=== PATIENT | male | born 1950 | race Hispanic/Latino ===

== ENCOUNTER 2016-11-25 07:53 | Inpatient (IN) | payer BC, MEDICARE ==
[2016-11-25 10:47] LABS: Hematocrit 42.6 % (35.5-45.6); Hemoglobin 14.2 gm/dl (11.8-15.2); Mean Corpuscular HGB Conc 33 % (32-34); Mean Corpuscular Hemoglobin 33 pg (28-32); Mean Corpuscular Volume 98 fl (84-94); Platelet Count 257 K/mm3 (140-440); Red Blood Count 4.37 M/mm3 (3.65-5.03); Red Cell Distribution Width 13.4 % (13.2-15.2)
[2016-11-25 10:56] LABS: INR 1.12 (0.87-1.13)
[2016-11-25 10:57] LABS: Partial Thromboplastin Time 26.6 Sec. (24.2-36.6)
[2016-11-25 11:02] LABS: Alanine Aminotransferase 11 units/L (7-56); Albumin/Globulin Ratio 1.4 %; Alkaline Phosphatase 87 units/L (35-129); Anion Gap 17 mmol/L; BUN/Creatinine Ratio 14.54; Bilirubin,Total 0.6 mg/dL (0.1-1.2); Blood Urea Nitrogen 16 mg/dL (9-20); Carbon Dioxide 24 mmol/L (22-30); Chloride 102.7 mmol/L (98-107); Glucose 108 mg/dL (75-100); Potassium 4.3 mmol/L (3.6-5.0); Sodium 139 mmol/L (137-145); Total Protein 6.8 g/dL (6.3-8.2)
--- NOTE | 2016-11-25 11:04 | Emergency Department Report ---
ED Extremity Problem HPI - General Chief complaint: Extremity Injury, Lower Stated complaint: LEGS/ARM SWELLING Time Seen by Provider: 11/25/16 10:09 Source: patient Mode of arrival: Ambulatory Limitations: No Limitations - History of Present Illness Initial comments: PT c/o R foot/ leg swelling x 1 week. PT states the pain started in his calf and then moved to foot. PT c/o L foot swelling and pain since Friday. Pt states his L hand was swollen yesterday. PT denies injury or trauma. PT states 2 weeks ago he drove to [place] for work and he works as a oxyacetylene welder PT states he was seen at [facility] and given RX medication but no improvement after starting Naprosyn Complaint: extremity pain, extremity swelling Onset/Timin -: Gradual, week(s) Location: left, right, upper extremity, lower extremity Consistency: constant (swelling - pain waxes and wans ) Improves with: nothing Associated Symptoms: denies: chest pain, shortness of breath, fever - Related Data Home Medications Medication Instructions Recorded Confirmed Last Taken Benazepril HCl 40 mg PO QDAY 11/25/16 11/25/16 11/25/16 05:00 Naproxen [Naprosyn] 500 mg PO BID 11/25/16 11/25/16 11/25/16 05:00 amLODIPine [Norvasc] 10 mg PO DAILY 11/25/16 11/25/16 11/25/16 05:00 Allergies Allergy/AdvReac Type Severity Reaction Status Date / Time No Known Allergies Allergy Unverified 11/25/16 07:59 ED Review of Systems ROS: Stated complaint: LEGS/ARM SWELLING Other details as noted in HPI Comment: All other systems reviewed and negative Constitutional: denies: chills, fever Respiratory: denies: shortness of breath Cardiovascular: denies: chest pain Gastrointestinal: denies: nausea, vomiting Musculoskeletal: as per HPI. denies: back pain Skin: denies: change in color ED Past Medical Hx - Past Medical History Hx Hypertension: Yes - Surgical History Past Surgical History?: No - Family History Family history: other (denies fhx of DVT) - Social History Smoking Status: Never Smoker Substance Use Type: None - Medications Home Medications: Home Medications Medication Instructions Recorded Confirmed Last Taken Type Benazepril HCl 40 mg PO QDAY 11/25/16 11/25/16 11/25/16 05:00 History Naproxen [Naprosyn] 500 mg PO BID 11/25/16 11/25/16 11/25/16 05:00 History amLODIPine [Norvasc] 10 mg PO DAILY 11/25/16 11/25/16 11/25/16 05:00 History ED Physical Exam - General Limitations: No Limitations General appearance: alert, in no apparent distress - Head Head exam: Present: atraumatic, normocephalic - Eye Eye exam: Present: normal appearance. Absent: conjunctival injection - ENT ENT exam: Present: normal exam - Neck Neck exam: Present: normal inspection, full ROM - Respiratory Respiratory exam: Present: normal lung sounds bilaterally. Absent: respiratory distress, wheezes, rhonchi - Cardiovascular Cardiovascular Exam: Present: regular rate, normal rhythm, normal heart sounds - GI/Abdominal GI/Abdominal exam: Present: soft. Absent: tenderness - Extremities Exam Extremities exam: Present: pedal edema. Absent: calf tenderness - Expanded Lower Extremity Exam Left Knee exam: Present: normal inspection, full ROM Lower Leg exam: Present: swelling. Absent: tenderness Ankle exam: Present: swelling, erythema (to medial ankle ). Absent: tenderness , abrasion Foot/Toe exam: Present: swelling. Absent: tenderness Right Lower Leg exam: Present: swelling. Absent: tenderness Ankle exam: Present: swelling. Absent: tenderness Foot/Toe exam: Present: swelling (+ pitting edema ), erythema (to R lateral foot 8 cm x 6 cm ). Absent: tenderness, tenderness at base of 5th metatarsal - Back Exam Back exam: Present: normal inspection, full ROM. Absent: tenderness, CVA tenderness (R), CVA tenderness (L), muscle spasm, paraspinal tenderness, vertebral tenderness - Neurological Exam Neurological exam: Present: alert, oriented X3 - Psychiatric Psychiatric exam: Present: normal affect, normal mood - Skin Skin exam: Present: warm, dry, erythema (to R lateral foot and L medial ankle ) ED Course Vital Signs 11/25/16 11/25/16 08:04 17:54 Temperature 97.6 F Pulse Rate 94 H Respiratory 16 22 Rate Blood Pressure 115/73 O2 Sat by Pulse 97 Oximetry - Reevaluation(s) Reevaluation #1: 11/25/16 12:38 PT aware of available lab work. Reevaluation #2: 11/25/16 12:49 Dr Cota aware of pt. Reevaluation #3: 11/25/16 15:49 repeat lactic acid improved - Consultations Consultation #1: 11/25/16 13:32 Dr Hilton to call back Consultation #2: 11/25/16 13:57 Dr Hilton to evaluate - Pulse Oximetry Interpretation Digit-Finger Initial Pulse Oximetry Readin Actions Taken: none ED Medical Decision Making - Lab Data Result diagrams: 11/25/16 10:26 11/25/16 10:26 - EKG Data -: EKG Interpreted by Co EKG shows normal: sinus rhythm Rate: normal - Radiology Data Radiology results: report reviewed BLE - no dvt - Differential Diagnosis dvt, cellulitis, renal insuf, chf Critical care attestation.: If time is entered above; I have spent that time in minutes in the direct care of this critically ill patient, excluding procedure time. ED Disposition Clinical Impression: Lower extremity edema Qualifiers: Laterality: bilateral Qualified Code(s): R60.0 - Localized edema Cellulitis Qualifiers: Site of cellulitis: extremity Site of cellulitis of extremity: lower extremity Laterality: right Qualified Code(s): L03.115 - Cellulitis of right lower limb Leukocytosis, unspecified Qualifiers: Leukocytosis type: unspecified Qualified Code(s): D72.829 - Elevated white blood cell count, unspecified Disposition: OP ADMITTED IP TO THIS HOSP Is pt being admited?: Yes Does the pt Need Aspirin: No Condition: Stable Referrals: ALAN GAYLE [Other] - 3-5 Days
[2016-11-25 11:30] LABS: Basophils % (Manual) 0 % (0.0-1.8); Blastocytes % (Manual) 0 %; Eosinophils % (Manual) 0 % (0.0-4.3)
[2016-11-25 11:31] LABS: Diff Status Complete; RBC Morphology Normal
[2016-11-25] MEDS ORDERED: VANCOMYCIN/NS 1 GM/250 ML 1 GM/250 ML BAG IV ONE (12:32)
[2016-11-25] MEDS ORDERED: NACL 0.9% 1000 ML IV ONE (12:32)
[2016-11-25] MEDS ORDERED: ROCEPHIN/NS 1 GM/50 ML 1 GM/50 ML BAG IV ONE (12:32)
--- NOTE | 2016-11-25 13:34 | XRay Report ---
Chest 2 views: History: Fever/sepsis. Findings: Normal cardiomediastinal silhouette. Trachea is midline. No consolidation, pneumothorax or pleural effusion. Impression: No acute cardiopulmonary findings.
--- NOTE | 2016-11-25 14:24 | Admit Criteria Form ---
Admission Criteria Documentation: CELLULITIS Clinical Indications for Admission to Inpatient Care (Place 'X' for any and all applicable criteria): Admission is indicated for ANY ONE of the following(1)(2)(3)(4)(5): [ ]I. Limb-threatening infection [ ]II. High-risk comorbid condition as indicated by ANY ONE of the following: [ ]a) Uncontrolled diabetes (eg, HbA1c greater than 10% (0.1)) [ ]b) Cirrhosis [ ]c) Neutropenia [ ]d) Asplenia [ ]e) Immunosuppression [ ]f) Symptomatic heart failure [ ]III. Failure of outpatient therapy as indicated by ALL of the following: [ ]a) Progression or no improvement after adequate trial (minimum of 48 hours, with longer period for stable lower extremity infection) [ ]b) Adequate antibiotic regimen as indicated by use of ANY ONE of the following: [ ]i) First-generation cephalosporin (e.g., cephalexin) [ ]ii) Antistaphylococcal penicillin (e.g., dicloxacillin) [ ]iii) Penicillin-allergic patient regimen (clindamycin, extended-spectrum fluoroquinolone, or doxycycline) [ ]iv) Resistant organism (eg, methicillin-resistant Staphylococcus aureus) regimen (6) [ ]c) Outpatient intravenous therapy regimen is not appropriate due to ANY ONE of the following. (7)(8)(9)(10): [ ]i) It was tried and was not successful (eg, progression of infection). [ ]ii) It is not available or cannot be arranged in a clinically appropriate time frame (e.g., the next day). [ ]iii) Clinical presentation (eg, acuity of infection, rapidity of progression, confirmed or suspected bacteremia) is judged to require ALL of the following: [ ]1) Immediate initiation of intravenous therapy ( eg, cannot wait for next day) [ ]2) Intensity of patient monitoring and observation (eg, vital sign measurement, checks for infection progression) that cannot be provided at other than inpatient level of care [ ]IV. Mental status changes [ ]V. Bacteremia [ ]. Hemodynamic instability [ ]VII. Suspected necrotizing soft tissue infection (e.g., gas in tissue)(11)( 12) [ ]VIII. Orbital infection (13)(14) [ ]IX. Associated surgical procedure (e.g., abscess drainage, debridement) not amenable to outpatient, emergency department, or observation care [ ]X. Cutaneous gangrene [ ]XI. High fever (temperature greater than 39.5 degrees C (103.1 degrees F) (oral)) not responsive to outpatient, emergency department, or observation care therapy [ X]XIII. Inpatient admission required rather than observation care (Also use Cellulitis: Observation Care as appropriate) because of ANY ONE of the following : [ ]a) Periorbital or perineal infection that is severe or worsening [ ]b) Severe pain requiring acute inpatient management [ ]c) IV fluid to replace significant ongoing (e.g., for over 24 hours) losses (greater than 3L/m2 per day) [ ]d) Compartment syndrome monitoring (17) [ ]e) Strict or protective (eg, laminar flow) isolation [ ]f) Urgent debridement or skin grafting [ ]g) Bone or joint debridement [ ]h) Immediate inpatient surgery [X ]i) Other condition, treatment or monitoring requiring inpatient admission Extended stay beyond goal length of stay may be needed for (1)(18): [ ]a) Necrotizing soft tissue infection or fasciitis [ ]b) Gram-negative infection [ ]c) Methicillin-resistant Staphylococcal aureus (MRSA) infection [ ]d) Peripheral venous insufficiency with cellulitis [ ]e) Extensive edema [ ]f) Sepsis or continued Hemodynamic instability [ ]g) Continued high fever or mental status change [ ]h) Bacteremia [ ]i) Active serious comorbid conditions ( eg, heart failure, renal insufficiency) The original [facility] content created by [employer] has been revised. The portions of the content which have been revised are identified through the use of italic text or in bold, and [facility] has neither reviewed nor approved the modified material. All other unmodified content is copyright [facility] [employer] Please see references footnoted in the original [facility] edition 2016 Admission Criteria Met: Yes
[2016-11-25] MEDS ORDERED: ZOFRAN IV ONE (17:37)
[2016-11-25] MEDS ORDERED: MORPHINE IV ONE (17:37)
--- NOTE | 2016-11-25 19:13 | Event Note ---
Date: 11/25/16 See H/p in reports Cellulitis Acute Gout
[2016-11-25] MEDS ORDERED: DULCOLAX PR PRN (19:14)
[2016-11-25] MEDS ORDERED: DILAUDID IV PRN (19:14)
[2016-11-25] MEDS ORDERED: TYLENOL PO PRN (19:14)
[2016-11-25] MEDS ORDERED: MILK OF MAGNESIA PO PRN (19:14)
[2016-11-25] MEDS ORDERED: AMBIEN PO PRN (19:14)
[2016-11-25] MEDS ORDERED: ZOFRAN IV PRN (19:14)
[2016-11-25] MEDS ORDERED: PERCOCET 5/325 PO PRN (19:14)
[2016-11-25] MEDS ORDERED: NON-FORMULARY (Benazepril Hcl [Benazepril Hcl] 40 MG) PO SCH (19:15)
[2016-11-25] MEDS ORDERED: VANCOMYCIN/NS 1 GM/250 ML 1 GM/250 ML BAG IV SCH (20:00)
[2016-11-25] MEDS ORDERED: D5/0.45NS 1,000 ML IV SCH (20:00)
--- NOTE | 2016-11-25 20:20 | History and Physical Report ---
CHIEF COMPLAINT: 1. Right foot swelling and redness for one week. 2. Left foot swelling and pain since 3 days and left hand swelling for about 2 days. HISTORY OF PRESENT ILLNESS: A 66-year-old male with history of hypertension and arthritis, who comes in for right foot swelling and redness of one-week duration. Pain is about 8 on a scale of 1-10. Redness around the ankle, spreading up to lower half of the calf, and also the mid dorsum of the foot. It was painful to walk. After 3-4 days, he developed left foot swelling and pain for three days. Now, he has swollen left hand, which is about 5/10 pain. Also, some redness and warmth present in both the left ankle and the right ankle. The predominant joint, which is effected, is the right ankle. No fever, no chills. No history of any rheumatoid arthritis. PAST MEDICAL HISTORY: Significant for, 1. Hypertension. 2. Mild arthritis. CURRENT MEDICATIONS: Benazepril 40 mg once a day, naproxen 500 mg twice a day, amlodipine 10 mg once a day. PAST SURGICAL HISTORY: None. FAMILY HISTORY: DVT. SOCIAL HISTORY: Does not smoke. No alcohol, no recreational drugs. REVIEW OF SYSTEMS: CONSTITUTION: No fever. No weight loss, no weight gain. HEENT: No sore throat, no postnasal drip. NECK: No neck stiffness. No neck pain. CARDIOVASCULAR AND RESPIRATORY SYSTEM: No shortness of breath, no chest pain, no palpitations. GASTROINTESTINAL: No nausea, no vomiting, no diarrhea. GENITOURINARY SYSTEM: No dysuria and no flank pain. MUSCULOSKELETAL SYSTEM: As described in the history of present illness, right foot swelling and redness, left ankle swelling and redness, and left hand swelling. HEMATOLOGIC AND LYMPHATIC SYSTEM: No easy bruising. No lymphedema. SKIN: No rashes. PSYCHIATRIC: No anxiety or depression. A 14-point review of systems done, essentially negative. PHYSICAL EXAMINATION: GENERAL: On examination, elderly male, cooperative during examination. VITAL SIGNS: Temperature is 97.6, pulse is 94, respiratory rate is 16, blood pressure is 115/73. HEENT: Unremarkable. Pupils equal and reactive. NECK: Supple, no lymphadenopathy, no thyromegaly. LUNGS: Clear to auscultation and percussion. Good air entry. CARDIOVASCULAR: S1, S2 heard. No gallop, no murmur, no rub. Apical impulse in the left fifth intercostal space and midclavicular line. ABDOMEN: Soft and benign. No hepatosplenomegaly. No guarding, no rigidity. Hernial orifices are normal. EXTREMITIES: Good pedal pulses. Left ankle swollen and tenderness present. There redness extends from the lower 3 inches of the leg through the ankle to the mid dorsum of the left foot. Also, the right ankle is red and swollen. Warm to touch. Left wrist is warm to touch. Not very much swollen, but slightly swollen. CENTRAL NERVOUS SYSTEM: Alert and oriented x4, nonfocal exam. LABORATORY DATA: Significant for white count of 21,000, H and H is 14.2 and 33.0, platelet count is 257,000. Lactic acid is 2.1, glucose 108. C-reactive protein is 5.5. BNP is 319. ASSESSMENT AND PLAN: 1. Left foot/ankle cellulitis. The patient started on Unasyn and vancomycin to cover staph and strep and the differential diagnosis, the patient may be having acute gout. Uric acid was ordered. The patient also started on colchicine 0.6 q.12 and Indocin 25 q.8. Steroids were not started. 2. Hypertension. The patient to be continued on benazepril 40 mg daily and amlodipine 10 mg daily. 3. Arthritis workup, the patient was ordered to get sed rate, CRP, ANGIE, double stranded DNA, and CCP rheumatoid factor. The basic workup for ruling out seropositive arthritis and also uric acid for acute gout. 4. Deep venous thrombosis prophylaxis, Lovenox 40 mg subcutaneous daily. JOB# [id number] VSM/NTS
[2016-11-25] MEDS: VANCOMYCIN VIAL 1,250 MG in NACL 0.9% 250ML 250 ML IV SCH (20:37)
[2016-11-25] MEDS: NORVASC PO SCH (20:37)
[2016-11-25] MEDS: ZESTRIL PO SCH (20:38)
[2016-11-25] MEDS: INDOCIN PO SCH (23:44)
[2016-11-25] MEDS: COLCRYS PO SCH (23:45)
[2016-11-25] MEDS: NAPROSYN PO SCH (23:46)
[2016-11-26 05:33] LABS: Basophils % (Auto) 0.6 % (0.0-1.8); Eosinophils % (Auto) 2.9 % (0.0-4.3); Hematocrit 38.6 % (35.5-45.6); Hemoglobin 12.9 gm/dl (11.8-15.2); Mean Corpuscular HGB Conc 33 % (32-34); Mean Corpuscular Hemoglobin 33 pg (28-32); Mean Corpuscular Volume 97 fl (84-94); Platelet Count 220 K/mm3 (140-440); Red Blood Count 3.97 M/mm3 (3.65-5.03); Red Cell Distribution Width 13.1 % (13.2-15.2); White Blood Count 14.4 K/mm3 (4.5-11.0)
[2016-11-26] MEDS: INDOCIN PO SCH (05:39)
[2016-11-26] MEDS: UNASYN/NS 3 GM/100 ML 3 GM/100 ML BAG IV SCH ×3 (05:41→11:38)
[2016-11-26 05:50] LABS: Alanine Aminotransferase 8 units/L (7-56); Albumin 3.5 g/dL (3.9-5); Albumin/Globulin Ratio 1.6 %; Alkaline Phosphatase 74 units/L (35-129); Anion Gap 16 mmol/L; BUN/Creatinine Ratio 21.42; Bilirubin,Total 0.6 mg/dL (0.1-1.2); Blood Urea Nitrogen 15 mg/dL (9-20); Calcium 8.4 mg/dL (8.4-10.2); Carbon Dioxide 24 mmol/L (22-30); Chloride 105.8 mmol/L (98-107); Glucose 94 mg/dL (75-100); Potassium 4.2 mmol/L (3.6-5.0); Sodium 142 mmol/L (137-145); Total Protein 5.7 g/dL (6.3-8.2)
[2016-11-26] MEDS: VANCOMYCIN VIAL 1,250 MG in NACL 0.9% 250ML 250 ML IV SCH (08:26)
[2016-11-26 08:47] VITALS: BP 115/69
[2016-11-26] MEDS: NORVASC PO SCH (09:46)
[2016-11-26] MEDS: NAPROSYN PO SCH (09:46)
[2016-11-26] MEDS: ZESTRIL PO SCH (09:46)
[2016-11-26] MEDS ORDERED: LOVENOX SUB-Q SCH (10:00)
--- NOTE | 2016-11-26 10:54 | Discharge Summary ---
Providers - Providers Date of Admission: 11/25/16 19:14 Date of discharge: 11/26/16 Attending physician: SHIREEN MUKHERJEE MD Hospitalization Reason for admission: right foot swelling and redness, left foot swelling and pain Condition: Stable Hospital course: Patient assessment 66-year-old male with history of hypertension and arthritis presented to the hospital with right foot swelling and redness for weak pain in the left foot greater than 8/10. He was diagnosed with cellulitis with acute gout attack and was started on steroids. Medication and antibiotics were remarkable improvement faster than expected. I did want to watch the patient one additional day to ensure complete resolution but the patient reported that he does have family on urgent matters that he be sought to assist is at home alone and is unable to drive or be cared for. He is clinically stable at this point for discharge. Recommendation for outpatient workup included CRP, and 8, double-stranded DNA, CCP, rheumatoid factor has been discussed with the patient and also uric acid to rule out seropositive arthritis and gout. Discharge diagnosis * Left foot acute gout attack with cellulites * Left cellulites * Hypertension * Arthritis Disposition: DISCHARGED TO HOME OR SELFCARE Time spent for discharge: 35 mins Core Measure Documentation - Palliative Care Palliative Care/ Comfort Measures: Not Applicable - Core Measures Any of the following diagnoses?: none - VTE Discharge Requirements Deep Vein Thrombosis/Pulmonary Embolism Present on Admission: No Exam - Physical Exam Narrative exam: VITAL SIGNS: Reviewed. GENERAL: The patient appeared well nourished and normally developed. Vital signs as documented. HEAD: No signs of head trauma. EYES: Pupils are equal. Extraocular motions intact. EARS: Hearing grossly intact. MOUTH: Oropharynx is normal. NECK: No adenopathy, no JVD. CHEST: Chest with clear breath sounds bilaterally. No wheezes, rales, or rhonchi. CARDIAC: Regular rate and rhythm. S1 and S2, without murmurs, gallops, or rubs. VASCULAR: No Edema. Peripheral pulses normal and equal in all extremities. ABDOMEN: Soft, without detectable tenderness. No sign of distention. No rebound or guarding, and no masses palpated. Bowel Sounds normal. MUSCULOSKELETAL: Good range of motion of all major joints. Extremities without clubbing, cyanosis or edema. NEUROLOGIC EXAM: Alert and oriented x 3. No focal sensory or strength deficits. Speech normal. Follows commands. PSYCHIATRIC: Mood normal. SKIN: No rash or lesions. - Constitutional Vitals: Temp Pulse Resp BP Pulse Ox 98.0 F 78 20 115/69 995 H 11/26/16 08:00 11/26/16 08:00 11/26/16 08:00 11/26/16 08:00 11/26/16 08:00 Plan Activity: advance as tolerated, fall precautions Diet: low fat Special Instructions: record daily BP diary Additional Instructions: must follow with pcp. must have recheck renal function in 2-3 days. Follow up with: ALAN GAYLE [Other] - 3-5 Days Prescriptions: Cephalexin [Keflex] 500 mg PO Q8HR #21 cap Colchicine [Colcrys] 0.6 mg PO BID #30 tablet oxyCODONE /ACETAMINOPHEN [Percocet 5/325 mg] 1 tab PO Q6H PRN #14 tablet PRN Reason: Pain, Moderate (4-6) Prednisone [predniSONE 10 mg (6-Day Pack, 21 Tabs)] 10 mg PO .TAPER #1 tab.ds.pk
[2016-11-26] MEDS: COLCRYS PO SCH (10:57)
[2016-11-26 13:49] LABS: Bilirubin,Urine NEG (Negative); Blood,Urine NEG (Negative); Ketones,Urine 20 mg/dL (Negative); Leukocyte Esterase,Urine NEG (Negative); Mucus,Urine FEW /HPF; Nitrite,Urine NEG (Negative); Protein,Urine <15 mg/dL mg/dL (Negative); Urobilinogen,Urine < 2.0 mg/dL (<2.0); WBC,Urine < 1.0 /HPF (0.0-6.0)
[2016-11-26] MEDS ORDERED: ZESTRIL PO SCH (20:00)
== END 2016-11-26 13:18 | disposition home or self-care (01) | DRG 603 ==
LOC: ED 07:53 → 3A 19:14
PROVIDERS: ADMIT Internal Medicine; ATTEND Internal Medicine
DX: L03.116 Cellulitis of left lower limb (principal); M10.9 Gout, unspecified; I10 Essential (primary) hypertension; M19.90 Unspecified osteoarthritis, unspecified site; M79.671 Pain in right foot
CPT/HCPCS: 36415; 71020; 80053; 81001; 82140; 82550; 83036; 83880; 84550; 85007; 85025; 85610; 85652; 85730; 86038; 86140; 86200; 86225; 86618; 87040; 93005; 93010; 93970; 96365; 96366; 96367; 96375; J0295; J0696; J1650; J2270; J2405; J3370; J7030; J7050